=== PATIENT | female | born 1960 | race Caucasian/White ===

== ENCOUNTER 2019-02-24 23:49 | Inpatient (IN) | payer BC ==
[~2019-02-24] VITALS: Ht 177.8 cm; Wt 88.0 kg
[~2019-02-24 23:49] MED LIST: GUAI1TBM19 PO; LIDO20SO PO; PHEN-716 PO
[2019-02-25 00:18] LABS: BASOPHILS # (AUTO) 0.1 X10'3 (0-0.2); BASOPHILS % (AUTO) 0.9 % (0-1); EOSINOPHILS # (AUTO) 0.2 X10'3 (0-0.9); EOSINOPHILS % (AUTO) 3.2 % (0-6); HEMATOCRIT 34.1 % (35.0-45.0); HEMOGLOBIN 11.5 g/dl (12.0-16.0); LYMPHOCYTES # (AUTO) 2.4 X10'3 (1.1-4.8); LYMPHOCYTES % (AUTO) 38.9 % (21-51); MEAN CORPUSCULAR HEMOGLOBIN 32.7 PG (27.0-31.0); MEAN CORPUSCULAR HGB CONC 33.7 g/dL (33.0-36.5); MEAN PLATELET VOLUME 8.6 FL (7.4-10.4); MONOCYTES # (AUTO) 0.7 X10'3 (0-0.9); MONOCYTES % (AUTO) 10.5 % (2-12); NEUTROPHILS # (AUTO) 2.9 X10'3 (1.8-7.7); NEUTROPHILS % (AUTO) 46.5 % (42-75); PLATELET COUNT 151 X10'3 (140-440); RED BLOOD COUNT 3.52 X10'6 (4.20-5.60); RED CELL DISTRIBUTION WIDTH 13.4 % (11.5-14.5); WHITE BLOOD COUNT 6.3 X10'3 (4.5-11.0)
[2019-02-25 00:43] LABS: ALANINE AMINOTRANSFERASE 30 U/L (12-78); ALBUMIN 3.9 G/DL (3.4-5.0); ALBUMIN/GLOBULIN RATIO 1.2 (1.1-1.5); ALKALINE PHOSPHATASE 61 IU/L (46-116); ANION GAP 13 (8-16); ASPARTATE AMINO TRANSFERASE 17 U/L (10-37); BILIRUBIN,TOTAL 0.2 MG/DL (0.1-1.0); BLOOD UREA NITROGEN 31 MG/DL (7-18); BUN/CREATININE RATIO 16.1 (6.6-38.0); CALCIUM 8.6 MG/DL (8.5-10.1); CHLORIDE 110 MMOL/L (99-107); CREATININE 1.92 MG/DL (0.40-0.90); GLUCOSE 105 MG/DL (70-104); POTASSIUM 4.8 MMOL/L (3.5-5.1); SODIUM 144 MMOL/L (135-145); TOTAL CARBON DIOXIDE 21.2 MMOL/L (24-32); TOTAL PROTEIN 7.1 G/DL (6.4-8.2); eGFR 27 ML/MIN
[2019-02-25 00:59] LABS: CLARITY,URINE CLEAR (Clear); COLOR,URINE YELLOW (Yellow); GLUCOSE, URINE NEGATIVE (Neg); KETONES,URINE NEGATIVE (Neg); LEUKOCYTE ESTERASE ,URINE NEGATIVE (Neg); NITRITES, URINE NEGATIVE (Neg); OCCULT BLOOD,URINE SMALL (Neg); PH,URINE 5.5 (4.8-8.0); PROTEIN,URINE NEGATIVE (Neg); UROBILINOGEN,URINE 0.2 E.U/dL (0.2-1.0)
[2019-02-25 01:00] LABS: UA COLLECTION TYPE CLN CATCH MIDSTREAM
[2019-02-25] MEDS ORDERED: normal saline 1000ML IV soln IVB ONE (01:00)
[2019-02-25] MEDS ORDERED: pantoprazole 40 MG vial IV ONE (01:00)
[2019-02-25] MEDS ORDERED: ondansetron/PF 4mg/2ml inj IV ONE (01:00)
[2019-02-25] MEDS ORDERED: LORazepam 2 mg/ml vial IV ONE (01:00)
[2019-02-25] MEDS ORDERED: morphine 4 MG/ML inj SYRINge IV ONE (01:00)
[2019-02-25 01:05] LABS: WBC,URINE 0-4 /HPF (0-4)
[2019-02-25 01:06] LABS: BACTERIA,URINE NONE SEEN /HPF (Neg); SQUAMOUS EPITHELIAL CELL,UR FEW /LPF (FEW); TRANSITIONAL EPI CELLS,URINE FEW /HPF
[2019-02-25 01:07] LABS: CELLULAR CAST 0-4 /LPF (NEGATIVE); FINE GRANULAR CAST 0-3 /LPF (NEGATIVE); HYALINE CASTS 0-3 /LPF (NEGATIVE)
--- NOTE | 2019-02-25 01:14 | NUR ---
PT GOING TO CT
--- NOTE | 2019-02-25 01:14 | NUR ---
PTS PAIN IS DISTRACTABLE
[2019-02-25] MEDS: morphine 2 MG/ML inj. syringe IV PRN ×2 (02:30→05:38)
[2019-02-25] MEDS ORDERED: IBUP-1984 PO (02:34)
[2019-02-25] MEDS ORDERED: LACT1CAP65 PO (02:36)
[2019-02-25] MEDS ORDERED: HYDR-3964 PO (02:36)
[2019-02-25] MEDS ORDERED: NITR100C PO (02:36)
[2019-02-25] MEDS ORDERED: CefTRIAXone/D5W-Rocephin 1gm 50 ML IV ONE (02:50)
[2019-02-25] MEDS ORDERED: magnesium hydroxide 30ml (MOM) UD suspension PO PRN (03:00)
[2019-02-25] MEDS ORDERED: morphine 2 MG/ML inj. syringe IV PRN ×2 (03:00)
[2019-02-25] MEDS ORDERED: potassium Cl 20 mEq SR tablet PO PRN ×2 (03:00)
[2019-02-25] MEDS ORDERED: ondansetron/PF 4mg/2ml inj IV PRN (03:00)
[2019-02-25] MEDS ORDERED: magnesium 2GM in 50ml NS 50 ML IV PRN (03:00)
[2019-02-25] MEDS ORDERED: potassium CL 10mEq/100ml bag 100 ML IV PRN ×2 (03:00)
[2019-02-25] MEDS ORDERED: acetaminophen 325mg tablet PO PRN (03:00)
[2019-02-25] MEDS ORDERED: magnesium 4gm in 100ml NS 100 ML IV PRN (03:00)
[2019-02-25] MEDS ORDERED: mag hydrox/Alum hydrox/simeth 30ml oral suspension PO PRN (03:00)
[2019-02-25] MEDS ORDERED: magnesium Cl slow-release 64mg tablet PO PRN (03:00)
[2019-02-25] MEDS: HYDROcodone/acetaminophen 5mg/325mg tablet PO PRN ×3 (05:37→19:03)
--- NOTE | 2019-02-25 05:40 | NUR ---
DR IRVING STATES PT CAN HAVE SIPS OF WATER
[2019-02-25] MEDS ORDERED: oxybutynin 5mg tablet PO SCH (06:10)
--- NOTE | 2019-02-25 06:30 | NUR ---
Patient in room [facility]. I have received report from Rosalba MORALES at ED and had the opportunity to ask questions and assume patient care.
[2019-02-25 08:00] VITALS: BP 176/81
[2019-02-25] MEDS: K and/or MAG REPLACEMENT MC SCH ×2 (08:00→20:00)
[2019-02-25] MEDS: enoxaparin 40mg/0.4ml syringe SQ SCH (08:00)
[2019-02-25 11:29] VITALS: BP 167/72
[2019-02-25] MEDS: oxybutynin 5mg tablet PO SCH ×2 (12:29→20:44)
[2019-02-25] MEDS: normal saline 1000ml 1,000 ML IV SCH ×2 (12:40→22:40)
[2019-02-25 14:39] LABS: ALBUMIN 3.1 G/DL (3.4-5.0); ANION GAP 9 (8-16); BLOOD UREA NITROGEN 23 MG/DL (7-18); BUN/CREATININE RATIO 15.9 (6.6-38.0); CALCIUM 8.2 MG/DL (8.5-10.1); CHLORIDE 114 MMOL/L (99-107); CREATININE 1.45 MG/DL (0.40-0.90); GLUCOSE 79 MG/DL (70-104); POTASSIUM 4.8 MMOL/L (3.5-5.1); SODIUM 146 MMOL/L (135-145); eGFR 37 ML/MIN
--- NOTE | 2019-02-25 18:00 | NUR ---
Patient in room [facility]. I have received report from Comfort MORALES and had the opportunity to ask questions and assume patient care.
[2019-02-25] MEDS: phenazopyridine 100mg tablet PO SCH (19:02)
--- NOTE | 2019-02-25 19:51 | NUR ---
Problems reprioritized. Patient report given, questions answered & plan of care reviewed with Maria Fernanda Mejia RN.
[2019-02-25 20:00] VITALS: BP 177/68
[2019-02-26] VITALS: BP 145/83
[2019-02-26] MEDS: normal saline 1000ml 1,000 ML IV SCH (01:38)
[2019-02-26] MEDS: HYDROcodone/acetaminophen 5mg/325mg tablet PO PRN (03:22)
[2019-02-26 05:32] LABS: BASOPHILS % (AUTO) 0.7 % (0-1); EOSINOPHILS # (AUTO) 0.2 X10'3 (0-0.9); EOSINOPHILS % (AUTO) 3.2 % (0-6); HEMATOCRIT 30.1 % (35.0-45.0); HEMOGLOBIN 10.3 g/dl (12.0-16.0); LYMPHOCYTES # (AUTO) 2.2 X10'3 (1.1-4.8); MEAN CORPUSCULAR HEMOGLOBIN 32.7 PG (27.0-31.0); MEAN CORPUSCULAR HGB CONC 34.1 g/dL (33.0-36.5); MEAN CORPUSCULAR VOLUME 95.8 FL (78-98); MEAN PLATELET VOLUME 8.9 FL (7.4-10.4); MONOCYTES # (AUTO) 0.5 X10'3 (0-0.9); MONOCYTES % (AUTO) 9.4 % (2-12); NEUTROPHILS # (AUTO) 2.1 X10'3 (1.8-7.7); NEUTROPHILS % (AUTO) 41.7 % (42-75); PLATELET COUNT 132 X10'3 (140-440); RED BLOOD COUNT 3.14 X10'6 (4.20-5.60); RED CELL DISTRIBUTION WIDTH 13.3 % (11.5-14.5); WHITE BLOOD COUNT 4.9 X10'3 (4.5-11.0)
[2019-02-26 05:51] LABS: ALBUMIN 2.9 G/DL (3.4-5.0); ANION GAP 6 (8-16); BLOOD UREA NITROGEN 16 MG/DL (7-18); BUN/CREATININE RATIO 16.3 (6.6-38.0); CALCIUM 8.4 MG/DL (8.5-10.1); CHLORIDE 112 MMOL/L (99-107); CREATININE 0.98 MG/DL (0.40-0.90); GLUCOSE 92 MG/DL (70-104); MAGNESIUM 1.8 MG/DL (1.5-2.4); POTASSIUM 4.9 MMOL/L (3.5-5.1); SODIUM 145 MMOL/L (135-145); eGFR 58 ML/MIN
--- NOTE | 2019-02-26 06:00 | NUR ---
Problems reprioritized. Patient report given, questions answered & plan of care reviewed with Shirley MORALES.
--- NOTE | 2019-02-26 06:40 | NUR ---
Patient in room [facility]. I have received report from Maria Fernanda Quiroz/Minoo MORALES and had the opportunity to ask questions and assume patient care.
[2019-02-26] MEDS ORDERED: CefTRIAXone 2gm/D5W 50ml 50 ML IV SCH (08:00)
[2019-02-26] MEDS: enoxaparin 40mg/0.4ml syringe SQ SCH (08:27)
[2019-02-26] MEDS: phenazopyridine 100mg tablet PO SCH (08:28)
[2019-02-26] MEDS: oxybutynin 5mg tablet PO SCH (08:28)
[2019-02-26] MEDS ORDERED: PHEN-786 PO (10:11)
[2019-02-26] MEDS ORDERED: CEFD300C3 PO (11:57)
--- NOTE | 2019-02-26 15:00 | NUR ---
Pt DC to home. Pt verbalizes understanding of all DC orders and directions. pt DC with Anyi and is to follow up with Dr Vieira within [address] Sorensen office was contacted and given all info about pt. Pt will be contacted to fill out paper work and be seen. Pt practiced and demonstrates proper way of changing leg cath as well as night bag. She was given all supplies. Pt was given pain med at 0300 this am and has not have any narcotics since. Pt wants to go home and wnts to drive herself since her car is out inthe parking lot. Otherwise, she has to wait for a ride until 5. Policy was verify and she is ok to go home. Pain meds are PRN ONLY. pt packed and bagged all belongings and was wheeled out to the front where she was going to drive herself. Pt is A & O, acting proper and in no distress.
== END 2019-02-26 15:10 | disposition home or self-care (01) | DRG 690 ==
LOC: ER 23:50 → ED HOLD 02-25 03:13 → SUR 3N 02-25 06:52
PROVIDERS: ADMIT Hospitalist; ATTEND Family Medicine
DX: N13.6 Pyonephrosis (principal); C52 Malignant neoplasm of vagina; N17.9 Acute kidney failure, unspecified; F17.200 Nicotine dependence, unspecified, uncomplicated; N39.44 Nocturnal enuresis; Z85.3 Personal history of malignant neoplasm of breast; Z85.42 Personal history of malignant neoplasm of other parts of uterus; Z90.12 Acquired absence of left breast and nipple; Z90.710 Acquired absence of both cervix and uterus; Z92.21 Personal history of antineoplastic chemotherapy; Z92.3 Personal history of irradiation; Z79.899 Other long term (current) drug therapy
CPT/HCPCS: 36415; 74176; 76937; 80048; 80053; 81001; 83735; 85025; 87081; 96374; 96375; 99285; C9113; G0378; J0696; J1650; J2060; J2270; J2405; J7030

== ENCOUNTER 2020-11-02 08:53 | Emergency (ER) | payer BC ==
[~2020-11-02] VITALS: Ht 177.8 cm; Wt 83.2 kg
[~2020-11-02 08:53] MED LIST changes: -GUAI1TBM19 PO; +HYDR-3964 PO; +LACT1CAP65 PO; -LIDO20SO PO; -PHEN-716 PO; +PHEN-786 PO
[2020-11-02] MEDS ORDERED: ketorolac trometh inj. 60 MG/2 ML VIAL IM ONE (09:10)
[2020-11-02 09:14] VITALS: BP 144/87
[2020-11-02] MEDS ORDERED: CYCL-1 PO (09:40)
== END 2020-11-02 10:01 | disposition home or self-care (01) ==
LOC: ER 08:54
DX: S39.012A Strain of muscle, fascia and tendon of lower back, initial encounter (principal); R20.0 Anesthesia of skin; M62.830 Muscle spasm of back; N31.9 Neuromuscular dysfunction of bladder, unspecified; R53.1 Weakness; Z87.440 Personal history of urinary (tract) infections; Z85.3 Personal history of malignant neoplasm of breast; Z90.710 Acquired absence of both cervix and uterus; Z79.899 Other long term (current) drug therapy; X58.XXXA Exposure to other specified factors, initial encounter; Y93.89 Activity, other specified; Y92.89 Other specified places as the place of occurrence of the external cause; Y99.8 Other external cause status
CPT/HCPCS: 96372; 99283; J1885

== ENCOUNTER 2020-11-24 09:30 | Emergency (ER) | payer BC ==
[~2020-11-24] VITALS: Ht 177.8 cm; Wt 84.0 kg
[~2020-11-24 09:30] MED LIST changes: +CYCL-1 PO
[2020-11-24] MEDS ORDERED: morphine 4 MG/ML inj SYRINge IV ONE (09:45)
[2020-11-24] MEDS ORDERED: normal saline 1000ml 1,000 ML IV ONE (09:45)
[2020-11-24] MEDS ORDERED: ondansetron/PF 4mg/2ml inj IV ONE (09:45)
[2020-11-24 10:37] LABS: BASOPHILS % (AUTO) 0.3 % (0-1); EOSINOPHILS # (AUTO) 0.1 X10'3 (0-0.9); EOSINOPHILS % (AUTO) 1.3 % (0-6); HEMATOCRIT 35.6 % (35.0-45.0); HEMOGLOBIN 12.1 g/dl (12.0-16.0); LYMPHOCYTES # (AUTO) 2.1 X10'3 (1.1-4.8); LYMPHOCYTES % (AUTO) 33.8 % (21-51); MEAN CORPUSCULAR HEMOGLOBIN 33.8 PG (27.0-31.0); MEAN CORPUSCULAR HGB CONC 33.9 g/dL (33.0-36.5); MEAN CORPUSCULAR VOLUME 99.9 FL (78-98); MEAN PLATELET VOLUME 8.1 FL (7.4-10.4); MONOCYTES # (AUTO) 0.5 X10'3 (0-0.9); NEUTROPHILS # (AUTO) 3.4 X10'3 (1.8-7.7); NEUTROPHILS % (AUTO) 56.6 % (42-75); PLATELET COUNT 174 X10'3 (140-440); RED BLOOD COUNT 3.57 X10'6 (4.20-5.60); RED CELL DISTRIBUTION WIDTH 13.8 % (11.5-14.5); WHITE BLOOD COUNT 6.1 X10'3 (4.5-11.0)
[2020-11-24 10:48] LABS: ALANINE AMINOTRANSFERASE 26 U/L (12-78); ALBUMIN 3.4 G/DL (3.4-5.0); ALKALINE PHOSPHATASE 50 IU/L (46-116); ANION GAP 11 (8-16); ASPARTATE AMINO TRANSFERASE 14 U/L (10-37); BILIRUBIN,DIRECT 0.1 MG/DL (0-0.3); BILIRUBIN,TOTAL 0.3 MG/DL (0.1-1.0); BLOOD UREA NITROGEN 17 MG/DL (7-18); BUN/CREATININE RATIO 21.3 (6.6-38.0); CALCIUM 8.7 MG/DL (8.5-10.1); CHLORIDE 107 MMOL/L (99-107); GLUCOSE 87 MG/DL (70-104); LIPASE < 50 U/L (73-393); POTASSIUM 3.8 MMOL/L (3.5-5.1); SODIUM 145 MMOL/L (135-145); TOTAL CARBON DIOXIDE 27.2 MMOL/L (24-32); TOTAL PROTEIN 6.7 G/DL (6.4-8.2); eGFR 74 ML/MIN
[2020-11-24 10:55] LABS: CLARITY,URINE CLEAR (Clear); COLOR,URINE YELLOW (Yellow); PH,URINE 7.5 (4.8-8.0); UA COLLECTION TYPE STRAIGHT CATH
[2020-11-24 10:56] LABS: GLUCOSE, URINE NEGATIVE (Neg); KETONES,URINE TRACE mg/dl (Neg); LEUKOCYTE ESTERASE ,URINE NEGATIVE (Neg); NITRITES, URINE NEGATIVE (Neg); OCCULT BLOOD,URINE NEGATIVE (Neg); PROTEIN,URINE NEGATIVE (Neg); UROBILINOGEN,URINE 0.2 E.U/dL (0.2-1.0)
[2020-11-24 12:10] VITALS: BP 140/78
== END 2020-11-24 12:31 | disposition home or self-care (01) ==
LOC: ER 09:30
DX: M54.89 Other dorsalgia (principal); R11.0 Nausea; Z87.440 Personal history of urinary (tract) infections; Z85.3 Personal history of malignant neoplasm of breast; Z90.710 Acquired absence of both cervix and uterus; Z79.899 Other long term (current) drug therapy
CPT/HCPCS: 36415; 74176; 80048; 80076; 81003; 83690; 85025; 96361; 96374; 96375; 99284; J2270; J2405; J7030

== ENCOUNTER 2024-07-20 16:28 | Emergency (ER) | payer BC, OTHER ==
[~2024-07-20] VITALS: Ht 172.7 cm; Wt 89.4 kg
--- NOTE | 2024-07-20 16:58 | Physician Documentation ---
History of Present Illness ~ Chief Complaint: Mechanical Fall Stated Complaint: LT THUMB PAIN/FACE PAIN Time Seen by MD: 19:56 Primary Medical Doctor: [facility] MANN HPI This 64-year-old female presents after a ground level trip and fall striking her left face, left hand in left knee causing pain to these areas. Patient reports no blood thinners and no loss of consciousness. Patient additionally reports pain to posterior neck, though reports no new new numbness or weakness in extremities. Tetanus within 5 Years?: No Medication Reconciliation Allergies: Coded Allergies: No Known Allergies (Unverified , 07/20/24) Scheduled Cyclobenzaprine* (Cyclobenzaprine*), 1 TAB PO Q8H Hydrocodone Bit/Acetaminophen (Hydrocodon-Acetaminophen 5-325), 1 TAB PO TID PRN, (Reported) Ibuprofen (Ibuprofen), 1 TAB PO Q8H Lactobacillus Acidophilus (Probiotic), 1 EACH PO DAILY, (Reported) Phenazopyridine Hcl (Pyridium tablet), 200 MG PO TIDWM Past Medical History Past Medical History: UTI, Extremity Fracture, *CANCER*, Breast Cancer Past Surgical History: hysterectomy Alcohol Use: Rarely Drug Use: none Lives with: S/O Lives In: Home Occupation: employed Review of Systems ROS Left face pain, left hand pain, and left knee pain as stated above in the HPI, otherwise all systems are reviewed and negative. Physical Exam Vital Signs: Temperature: 97.9, Source: Temporal, Heart Rate: 89, Respiratory Rate: 16, BP: 151/89, Pulse Oximetry: 98, Weight: 89.400 Oxygen Flow Rate: 0 Physical Exam VITALS: Reviewed and as above. GENERAL: Alert, nontoxic appearing, no apparent distress. HEENT: Mild swelling minimal ecchymosis to left cheek. Tenderness to posterior neck without central C-spine tenderness, no step-offs, no crepitus. PERRLA EOMI RESPIRATORY: No increased work of breathing, no respiratory distress, speaking in full clear sentences SKIN: Abrasion to the skin of left knee, no ecchymosis, EXTREMITIES: No gross deformities, no swelling, mild tenderness to palpation to the anterior right knee, range of motion intact in all limbs. Palmar aspect of base of left hand tender to palpation Progress Results/Orders Results/Orders Orders - KAMALJIT,WHITNEY W [employer]ANETARI[employer] TECHNICIAN Ct Cervical Spine (07/20/24 20:29) Ct Head (07/20/24 20:27) Ct Facial Bones/Soft Tissue (07/20/24 20:27) Ortho Orders (07/20/24 ) Completed Orders - WHITNEY MARI PLANETARIUM TECHNICIAN Ct Cervical Spine (07/20/24 20:29) Ct Head (07/20/24 20:27) Ct Facial Bones/Soft Tissue (07/20/24 20:27) Ketorolac Trometh 15mg/Ml Vial (Toradol (07/20/24 20:20) Acetaminophen 325mg Tablet (Tylenol Tabl (07/20/24 22:30) Vital Signs 07/20/24 07/20/24 07/20/24 07/20/24 16:30 19:37 19:39 21:09 Temp 97.9 Pulse 89 55 54 Resp 16 16 16 16 B/P (MAP) 151/89 172/92 (118) 162/80 (107) Pulse Ox 98 99 100 O2 Flow Rate 0 0 0 07/20/24 07/20/24 22:55 22:55 Temp 97.9 Pulse 65 Resp 16 16 B/P (MAP) 154/72 Pulse Ox 100 EKG/XRAY/CT/US/VASC/MRI Bone/Soft Tissue X-Ray (Ext.) #1: Additional Comment Procedure: DI FINGER(S) 07/20/2024 04:54 PM TECHNIQUE: DI FINGER(S) Indication: Finger Pain Comparison: None FINDINGS: Bones: No acute fracture or dislocation. Joint spaces are maintained. Soft tissues: Soft tissue swelling is present. No radiopaque foreign body. IMPRESSION: 1. No acute osseous abnormality. There is soft tissue swelling present. Electronically Signed by:KALANI LERMA MD Date & Time: 07/20/241732 Dictated by: KALANI LERMA MD Dictation date and time: 07/20/241732 I have reviewed and agree with the radiology report. I have reviewed and interpreted the imaging as: No fracture or dislocation Bone/Soft Tissue X-Ray (Ext.) #2: Additional Comment CLINICAL INDICATION: KNEE PAIN TECHNIQUE: left DI KNEE, COMP 4 VW MIN Comparison: None FINDINGS/IMPRESSION: : There is no evidence of acute fracture or dislocation. Soft tissues are unremarkable. Electronically Signed by:KALANI GR MD Date & Time: 07/20/241739 Dictated by: KALANI GR MD Dictation date and time: 07/20/241739 I have reviewed and agree with the radiology report. I have reviewed and interpreted the imaging as: No fracture or dislocation CT #1: Impression EXAM: CT CT CERVICAL SPINE INDICATION: Neck and Head Pain After Fall W/Headstrike EXAM DATE: 07/20/2024 08:26 PM COMPARISON: None TECHNIQUE: CT of the cervical spine without intravenous contrast. Radiation Dose Information: CT Dose: CTDI volume is 23 mGy. Dose-length product is 5025 mGy*cm FINDINGS: The cervical alignment is intact. No acute cervical spine fracture is identified. The vertebral body heights are intact. No suspicious osseous lesions are identified. The craniocervical junction appears intact. Moderate multilevel degenerative changes no significant osseous spinal canal stenosis. Mild bilateral osseous neural foraminal narrowing. There is no prevertebral soft tissue swelling. IMPRESSION: No evidence of acute cervical spine fracture or malalignment. END IMPRESSION: Electronically Signed by:KEVIN RODRIGUEZ DO Date & Time: 07/20/242205 Dictated by: KEVIN RODRIGUEZ DO Dictation date and time: 07/20/242028 CT #2: Impression EXAM: CT CT HEAD INDICATION: Neck and Head Pain After Fall W/Headstrike TECHNIQUE: CT of the head without intravenous contrast. Radiation Dose : 1. Head: CT Dose: CTDI volume is 64 mGy. Dose-length product is 1167 mGy*cm The dose indicators for CT are the volume Computed Tomography (CT) Dose Index (CTDIvol) and the Dose Length Product (DLP), and are measured in units of mGy and mGy-cm, respectively. These indicators are not patient dose, but values generated from the CT scanner acquisition factors. The report includes radiation exposure data for exposures received during this examination. COMPARISON: None FINDINGS: There is no evidence of acute intracranial hemorrhage, extra-axial collection, mass effect, midline shift, herniation or hydrocephalus. The ventricles, sulci and cisterns are age appropriate. The figueroa-white differentiation is intact. Patchy periventricular and subcortical white matter hypoattenuation is nonspecific but may be related to small vessel ischemic disease. The visualized paranasal sinuses and mastoid air cells are clear. Soft tissue injury to the left face. IMPRESSION: No acute intracranial abnormality. Electronically Signed by:KEVIN RODRIGUEZ DO Date & Time: 07/20/242201 Dictated by: KEVIN RODRIGUEZ DO Dictation date and time: 07/20/242201 Ultrasound : Impression HISTORY: Face Pain After Fall TECHNIQUE: Nonenhanced axial images through the facial bones with coronal and sagittal MPR. Radiation Dose Information: CT Dose: CTDI volume is 55 mGy. Dose-length product is 1079 mGy*cm COMPARISON: None FINDINGS: Mandible: Within normal limits Maxilla: Within normal limits Pterygoid plates: Within normal limits Zygomatic processes: Within normal limits. Zygomatic arches: Within normal limits Orbits: Within normal limits Sinuses: Within normal limits Facial swelling: Soft tissue injury/ edema involving the left face. IMPRESSION: 1. No acute facial fractures. Radiation optimization: All CT scans at this facility use at least one of these dose optimization techniques: automated exposure control mA and/or kV adjustment per patient size (includes targeted exams where dose is matched to clinical indication) or iterative reconstruction. Electronically Signed by:KEVIN RODRIGUEZ DO Date & Time: 07/20/242207 Dictated by: KEVIN RODRIGUEZ DO Dictation date and time: 07/20/242026 Departure Disposition: 01 HOME / SELF CARE / HOMELESS Impression: Primary Impression: Contusion of left cheek Additional Impressions: Left hand pain Knee pain Qualified Codes: M25.562 - Pain in left knee Concussion Qualified Codes: S06.0X0A - Concussion without loss of consciousness, initial encounter Condition: Improved Discharge Instructions: Concussion, Adult, [id number], Contusion, RICE Therapy for Routine Care of Injuries, [id number] Additional Instructions: Please see the attached home care instructions, you may also reference the CDC concussion care guidelines on the Internet. You may use ibuprofen and or Tylenol as directed by [id number] packaging as needed for pain. Please follow up with your primary care provider in the next few days. Please return to the emergency department for any new or worsening concerning symptoms. Referrals: NO PRIMARY CARE PROVIDER (PCP) Prescriptions Ibuprofen (Ibuprofen) 800 Mg Tablet 1 TAB PO Q8H for pain for 10 Days, #30 TAB 0 Refills Take with food to avoid stomach upset Prov: WHITNEY MARI 07/20/24 Education Educated: Patient Educated regarding: diagnosis, treatment, prognosis, need for follow up WHITNEY MARI Jul 20, 2024 16:58
--- NOTE | 2024-07-20 17:36 | RADIOLOGY REPORT ---
Procedure: DI FINGER(S) 07/20/2024 04:54 PM TECHNIQUE: DI FINGER(S) Indication: Finger Pain Comparison: None FINDINGS: Bones: No acute fracture or dislocation. Joint spaces are maintained. Soft tissues: Soft tissue swelling is present. No radiopaque foreign body. IMPRESSION: 1. No acute osseous abnormality. There is soft tissue swelling present.
--- NOTE | 2024-07-20 17:42 | RADIOLOGY REPORT ---
CLINICAL INDICATION: KNEE PAIN TECHNIQUE: left DI KNEE, COMP 4 VW MIN Comparison: None FINDINGS/IMPRESSION: : There is no evidence of acute fracture or dislocation. Soft tissues are unremarkable.
[2024-07-20] MEDS: ketorolac trometh 15mg/ml vial 15 MG/ML ML IM ONE (20:57)
--- NOTE | 2024-07-20 22:04 | RADIOLOGY REPORT ---
EXAM: CT CT HEAD INDICATION: Neck and Head Pain After Fall W/Headstrike TECHNIQUE: CT of the head without intravenous contrast. Radiation Dose : 1. Head: CT Dose: CTDI volume is 64 mGy. Dose-length product is 1167 mGy*cm The dose indicators for CT are the volume Computed Tomography (CT) Dose Index (CTDIvol) and the Dose Length Product (DLP), and are measured in units of mGy and mGy-cm, respectively. These indicators are not patient dose, but values generated from the CT scanner acquisition factors. The report includes radiation exposure data for exposures received during this examination. COMPARISON: None FINDINGS: There is no evidence of acute intracranial hemorrhage, extra-axial collection, mass effect, midline s hift, herniation or hydrocephalus. The ventricles, sulci and cisterns are age appropriate. The figueroa-white differentiation is intact. Patchy periventricular and subcortical white matter hypoattenuation is nonspecific but may be related to small vessel ischemic disease. The visualized paranasal sinuses and mastoid air cells are clear. Soft tissue injury to the left face. IMPRESSION: No acute intracranial abnormality.
--- NOTE | 2024-07-20 22:08 | RADIOLOGY REPORT ---
EXAM: CT CT CERVICAL SPINE INDICATION: Neck and Head Pain After Fall W/Headstrike EXAM DATE: 07/20/2024 08:26 PM COMPARISON: None TECHNIQUE: CT of the cervical spine without intravenous contrast. Radiation Dose Information: CT Dose: CTDI volume is 23 mGy. Dose-length product is 5025 mGy*cm FINDINGS: The cervical alignment is intact. No acute cervical spine fracture is identified. The vertebral bod y heights are intact. No suspicious osseous lesions are identified. The craniocervical junction erick ears intact. Moderate multilevel degenerative changes no significant osseous spinal canal stenosis. Mild bilateral osseous neural foraminal narrowing. There is no prevertebral soft tissue swelling. IMPRESSION: No evidence of acute cervical spine fracture or malalignment. END IMPRESSION:
--- NOTE | 2024-07-20 22:11 | RADIOLOGY REPORT ---
HISTORY: Face Pain After Fall TECHNIQUE: Nonenhanced axial images through the facial bones with coronal and sagittal MPR. Radiation Dose Information: CT Dose: CTDI volume is 55 mGy. Dose-length product is 1079 mGy*cm COMPARISON: None FINDINGS: Mandible: Within normal limits Maxilla: Within normal limits Pterygoid plates: Within normal limits Zygomatic processes: Within normal limits. Zygomatic arches: Within normal limits Orbits: Within normal limits Sinuses: Within normal limits Facial swelling: Soft tissue injury/ edema involving the left face. IMPRESSION: 1. No acute facial fractures. Radiation optimization: All CT scans at this facility use at least one of these dose optimization yung hniques: automated exposure control mA and/or kV adjustment per patient size (includes targeted exam s where dose is matched to clinical indication) or iterative reconstruction.
[2024-07-20] MEDS ORDERED: IBUP-1986 PO (22:43)
[2024-07-20] MEDS: acetaminophen 325mg tablet PO ONE (22:51)
[2024-07-20 22:55] VITALS: BP 154/72; PULSE 65; RESP 16; TEMP 97.9; O2SAT 100
== END 2024-07-20 22:58 | disposition home or self-care (01) ==
LOC: ER 16:29
DX: S00.83XA Contusion of other part of head, initial encounter (principal); S06.0X0A Concussion without loss of consciousness, initial encounter; M25.562 Pain in left knee; M79.642 Pain in left hand; Z90.710 Acquired absence of both cervix and uterus; W01.0XXA Fall on same level from slipping, tripping and stumbling without subsequent striking against object, initial encounter; Y93.89 Activity, other specified; Y92.89 Other specified places as the place of occurrence of the external cause; Y99.8 Other external cause status
CPT/HCPCS: 70450; 70486; 72125; 73140; 73564; 96372; 99285; J1885

== ENCOUNTER 2024-07-26 13:37 | Emergency (ER) | payer OTHER, MEDICAID ==
[~2024-07-26] VITALS: Ht 172.7 cm; Wt 88.2 kg
[~2024-07-26 13:37] MED LIST changes: +IBUP-1986 PO
--- NOTE | 2024-07-26 14:09 | RADIOLOGY REPORT ---
[facility] EXAMINATION: DI UNI RIBS WITH PA CHEST INDICATION: left rib pain COMPARISON: None TECHNIQUE: Frontal view of the chest and 3 views of the left ribs history FINDINGS: No focal consolidation, pleural effusion or significant pneumothorax. Normal cardiomediastinal silhou ette. No displaced left rib fracture. IMPRESSION: No acute cardiopulmonary disease. No displaced left rib fracture.
--- NOTE | 2024-07-26 15:02 | Physician Documentation ---
History of Present Illness ~ Chief Complaint: Rib pain Stated Complaint: BREAST PAIN Time Seen by MD: 14:53 OK to notify your PCP?: Yes Primary Medical Doctor: [facility] [place]DR MANN Source: patient Mode of Arrival: POV Exam Limitations: no limitations HPI 64-year-old female who presents with left chest wall pain after falling 6 days ago. After the fall she had some your left-sided rib/chest wall soreness that started 1 day later and now is progressing into severe pain and she is having difficulty sleeping with it. She was seen here 6 days ago and had a had negative head imaging but did not receive any chest/rib x-ray. She has increased pain with deep breath or movement and is having to hold up her breast implant due to the pain. She had breast implants placed [place] [address] Cornell who has since retired. She believes they are saline and under the muscle but they also maybe silicone she can not remember exactly. She reports that the implant appears lower than the other side. Tetanus within 5 Years?: No Allergies: Coded Allergies: No Known Allergies (Unverified , 07/26/24) Active Prescriptions See Medication Reconciliation Form. Medication Reconciliation Scheduled Cyclobenzaprine* (Cyclobenzaprine*), 1 TAB PO Q8H Hydrocodone Bit/Acetaminophen (Hydrocodon-Acetaminophen 5-325), 1 TAB PO TID PRN, (Reported) Ibuprofen (Ibuprofen), 1 TAB PO Q8H Lactobacillus Acidophilus (Probiotic), 1 EACH PO DAILY, (Reported) Phenazopyridine Hcl (Pyridium tablet), 200 MG PO TIDWM Past Medical History Past Medical History: UTI, Extremity Fracture, *CANCER*, Breast Cancer Past Surgical History: hysterectomy Alcohol Use: Rarely Drug Use: none Lives with: S/O Lives In: Home Occupation: employed Review of Systems All Other Systems at this time: Reviewed and Negative Physical Exam Vital Signs: RN Vital Signs have been reviewed: Yes, Temperature: 97.8, Source: Temporal, Heart Rate: 89, Respiratory Rate: 18, BP: 155/90, Pulse Oximetry: 99, Weight: 88.180 Oxygen Flow Rate: 0 Pulse Oximetry Reflects: adequate oxygenation Physical Exam General: Alert, no apparent distress. HEENT: PERRL, EOMI, no injection, moist mucous membranes. Neck: Full range of motion. Respiratory: Lungs clear, no respiratory distress. Chest: No accessory muscle use. Pain to palpation along left chest wall and around breast implant. On exam breast implant on the left appears lower than on the right. Cardiovascular: Regular rate and rhythm, no murmurs. Gastrointestinal: Soft, nontender, nondistended. Bowels sounds present. Extremities: Normal range of motion, no deformity. Neurologic: Oriented x4. Psychiatric: Normal mood and affect. Skin: Normal color, warm and dry. Ecchymosis around the left orbital and left forehead in the stages of healing. Progress Results/Orders Reviewed/noted all lab results: Yes Results/Orders Orders - TISHA RUTH [employer] Us Exam, Breast Unilat (07/26/24 14:53) Completed Orders - TISHA RUTH [employer] Us Exam, Breast Unilat (07/26/24 14:53) Ketorolac Trometh 30mg/Ml Vial (Toradol (07/26/24 14:55) Orphenadrine Citrate Inj. (Norflex Inj.) (07/26/24 14:55) Medications Received in ER Medications (Trade) Dose Ordered Sig/Geovanna Route PRN Reason Start Time Stop Time Status Last Admin Dose Admin (Toradol inj. 30mg/ml) 30 mg ONCE ONCE IM 07/26/24 14:55 07/26/24 14:58 DC 07/26/24 15:29 30 MG (Norflex inj.) 60 mg ONCE ONCE IM 07/26/24 14:55 07/26/24 14:57 DC 07/26/24 15:28 60 MG Vital Signs 07/26/24 07/26/24 13:42 15:29 Temp 97.8 Pulse 89 Resp 18 16 B/P (MAP) 155/90 Pulse Ox 99 O2 Flow Rate 0 EKG/XRAY/CT/US/VASC/MRI Bone/Soft Tissue X-Ray (Ext.) : Additional Comment Left rib x-ray: as interpreted by me; no acute fracture, no soft tissue swelling. Ultrasound : Impression Left breast ultrasound as interpreted by me. No abscess, or fluid collection seen. Medical Decision Making Additional info obtained from: old records Findings 64-year-old female presents with a left chest wall and breast pain after fall 6 days ago. She initially did not have any pain to that side but the next day s tarted having some soreness around the implant which then proceeded to increase in pain throughout the week. She states that the only way that she can relief the pain is by lifting up on her left breast and that it also appears abnormally lower than the other side. Rib x-rays were negative for an acute fracture although the implant does appear lower than the other side but positioning is not optimal for comparison. I discussed this case with Dr. Sanchez and she recommended we get a breast ultrasound to assess for a rupture of the implant and to treat with muscle relaxer and Toradol which was ordered. Ultrasound was negative for excess fluid collection or abscess. After assessing the patient, she is feeling much better after the medication administration and she has been able to take a nap while here. We discussed that we have limited resources in the emergency department and she needs to follow up with her primary care provider in the next 3 days and get a referral to a breast surgeon. She is requesting some sort of support device to allow support for the breast so she does not have to hold it up, we will provide a wrap to help provide a little extra support on that side. I have sent a prescriptions for Flexeril and naproxen for pain relief. She will return back here for any new or worsening symptoms she agrees with this plan. Differential Dx:Considerations: Include: Chest wall contusion, Flail chest, Pneumothorax, Pulmonary contusion, Rib fracture, Tension pneumothorax Departure Disposition: 01 HOME / SELF CARE / HOMELESS Impression: Primary Impression: Pain from breast implant Condition: Stable Discharge Instructions: Breast Tenderness Additional Instructions: You can use the Amrik wrap provided to help as support for your left breast. Please see your primary care provider in the next 3 days to receive a referral to a breast surgeon. Your ultrasound did not show any abnormalities in the implant. We discussed the you can use naproxen and the muscle relaxer to help with pain relief. A heating pad may also be helpful with this. Please return back here for any new or worsening symptoms. Referrals: NO PRIMARY CARE PROVIDER (PCP) Prescriptions Cyclobenzaprine* (Cyclobenzaprine*) 10 Mg Tablet 1 TAB PO Q8H PRN for muscle spasms for 10 Days, #30 TAB 0 Refills Prov: TISHA RUTH [employer] 07/26/24 Naproxen (Naproxen) 500 Mg Tablet 1 TAB PO Q12H, #20 TAB Prov: TISHA RUTH 07/26/24 Education Educated: Patient Educated regarding: diagnosis, treatment, prognosis, need for follow up Additional Comment Medical Screen Exam This patient recieved a medical screening examination. After reviewing the individual's medical complaints with presenting symptoms and performing an appropriate physical examination, it was determined that no immediate life- threatening emergency medical condition is present. This individual is also not a women having contractions. Signature Scribe Signature: . Attestation: Scribed for Tisha Ruth by Tisha Chase NP . 07/26/24 16:30 TISHA RUTH Jul 26, 2024 15:02
[2024-07-26] MEDS: orphenadrine citrate 60mg/2ml inj. IM ONE (15:28)
[2024-07-26] MEDS: ketorolac trometh 30MG/ML vial 30 MG/ML VIAL IM ONE (15:29)
--- NOTE | 2024-07-26 15:57 | RADIOLOGY REPORT ---
US OF THE left BREAST INDICATION: Fall injury. Pain in the left breast. TECHNIQUE: Limited diagnostic ultrasound of the left breast were evaluated with ultrasound COMPARISON: None. FINDINGS: Corresponding to the area of clinical concern, no mass or fluid collection identified in the area of the patient's clinical symptoms near the 5-7 o'clock positions of the left breast. IMPRESSION: 1. There is no mass or fluid collection identified in the area of clinical concern in the left breast . Correlate with clinical findings. Examination is limited to the area of concern does not replace th e need for screening mammography. Annual screening mammography recommended. 2. ACR Bi Rads Category:Category 2, benign findings.
[2024-07-26] MEDS ORDERED: NAPR-56 PO (16:25)
[2024-07-26] MEDS ORDERED: CYCL-1 PO (16:25)
[2024-07-26 16:44] VITALS: BP 150/82; PULSE 64; RESP 16; TEMP 97.8; O2SAT 98
== END 2024-07-26 16:46 | disposition home or self-care (01) ==
LOC: ER 13:38
DX: N64.4 Mastodynia (principal); R07.89 Other chest pain; Z85.3 Personal history of malignant neoplasm of breast; Z90.710 Acquired absence of both cervix and uterus
CPT/HCPCS: 71101; 76642; 76881; 96372; 99285; J1885; J2360; A6449

== ENCOUNTER 2024-12-17 09:53 | Emergency (ER) | payer MEDICAID, OTHER ==
[~2024-12-17] VITALS: Ht 177.8 cm; Wt 89.5 kg
[2024-12-17 09:59] VITALS: TEMP 96.8
--- NOTE | 2024-12-17 10:13 | Physician Documentation ---
History of Present Illness ~ Chief Complaint: Back Pain Stated Complaint: BACK PAIN Time Seen by MD: 10:12 Primary Medical Doctor: ELADIO WH[facility] MANN HPI This is a 64-year-old female with a history of vaginal, uterine, and breast cancer. She presents today due to concerns for back pain and possible urinary tract infection. She self catheterizes due to urinary obstruction/retention. Hx of HLD, anxiety. Was concerned today because when she went to self-catheterize, she had a very large amount of blood. This is not typical with self catheterization for her. She notes that she is able to void at times, that has self catheterizes 3 times a day to ensure emptying of the bladder. History of neurogenic bladder. No recent chills or fever, but does note that she feels overall unwell. Medication Reconciliation Allergies: Coded Allergies: No Known Allergies (Unverified , 12/17/24) Scheduled Cyclobenzaprine* (Cyclobenzaprine*), 1 TAB PO Q8H Hydrocodone Bit/Acetaminophen (Hydrocodon-Acetaminophen 5-325), 1 TAB PO TID P RN, (Reported) Ibuprofen (Ibuprofen), 1 TAB PO Q8H Lactobacillus Acidophilus (Probiotic), 1 EACH PO DAILY, (Reported) Naproxen (Naproxen), 1 TAB PO DAILY Phenazopyridine Hcl (Pyridium tablet), 200 MG PO TIDWM Phenazopyridine Hcl (Pyridium tablet), 1 TAB PO Q8H Sulfamethoxazole/Trimethoprim (Bactrim Ds Tablet), 1 TAB PO Q12H Scheduled PRN Cyclobenzaprine* (Cyclobenzaprine*), 1 TAB PO Q8H PRN for muscle spasms Past Medical History Past Medical History: UTI, Extremity Fracture, *CANCER*, Breast Cancer Past Surgical History: hysterectomy Alcohol Use: Rarely Drug Use: none Lives with: S/O Lives In: Home Occupation: employed Review of Systems ROS As stated above in the HPI, otherwise all systems are reviewed and negative. Physical Exam Physical Exam Vital Signs: Temperature: 96.8, Source: Temporal, Heart Rate: 86, Respiratory Rate: 18, BP: 165/98, Pulse Oximetry: 97, Weight: 89.500 Oxygen Flow Rate: 0 Progress Results/Orders Results/Orders Orders - JAMAICA RAVI NP * Straight Cath* (12/17/24 10:16) Completed Orders - JAMAICA RAVI NP Hydrocodone/Apap 5/325mg Tab ([place] 5/32 (12/17/24 10:30) Ceftriaxone Im Kit W/Lidocaine (Rocephin (12/17/24 12:15) Phenazopyridine Tablet (Pyridium Tablet) (12/17/24 12:15) Medications Received in ER Medications (Trade) Dose Ordered Sig/Geovanna Route PRN Reason Start Time Stop Time Status Last Admin Dose Admin ([place] 5/325mg tablet) 1 tab ONCE ONCE PO 12/17/24 10:30 12/17/24 10:31 DC 12/17/24 10:45 1 TAB (Rocephin 1GM IM kit (w/lidocaine diluent)) 1,000 mg ONCE ONCE IM 12/17/24 12:15 12/17/24 12:16 DC 12/17/24 12:23 1,000 MG (Pyridium tablet) 100 mg ONCE ONCE PO 12/17/24 12:15 12/17/24 12:16 DC 12/17/24 12:22 100 MG Vital Signs 12/17/24 12/17/24 12/17/24 12/17/24 09:59 10:45 11:39 12:27 Temp 96.8 Pulse 86 71 52 52 Resp 18 20 18 20 B/P (MAP) 165/98 163/88 (113) 153/76 (101) 148/83 (104) Pulse Ox 97 99 96 100 O2 Flow Rate 0 0 0 0 Laboratory Tests Test 12/17/24 10:06 12/17/24 10:27 Urine Specimen Description Straight cath Urine Color Yellow Urine Clarity Slightly cloudy Urine pH 7.5 Urine Specific [place] 1.010 Urine Protein Negative Urine Glucose (UA) Negative Urine Ketones Negative Urine Occult Blood Moderate H Urine Nitrite Positive H Urine Bilirubin Negative Urine Urobilinogen 0.2 Urine Leukocyte Esterase Trace H Urine RBC 3-10 Urine WBC 10-20 H Urine Squamous Epithelial Cells Many Urine Bacteria 4+ Urine Culture Indicated Indicated Volume Urine Centrifuged 10 ml Urine HCG, Qualitative Negative Urine Comment White Blood Count 4.7 Red Blood Count 3.69 L Hemoglobin 12.5 Hematocrit 37.2 Mean Corpuscular Volume 100.7 H Mean Corpuscular Hemoglobin 33.9 H Mean Corpuscular Hemoglobin Concent 33.7 Red Cell Distribution Width 13.7 Platelet Count 161 Mean Platelet Volume 7.9 Neutrophils (%) (Auto) 49.9 Lymphocytes (%) (Auto) 40.6 Monocytes (%) (Auto) 7.5 Eosinophils (%) (Auto) 1.4 Basophils (%) (Auto) 0.6 Neutrophils # (Auto) 2.3 Lymphocytes # (Auto) 1.9 Monocytes # (Auto) 0.3 Eosinophils # (Auto) 0.1 Basophils # (Auto) 0.0 CBC Comment Sodium Level 141 Potassium Level 3.9 Chloride Level 108 H Carbon Dioxide Level 25.9 Anion Gap 7 L Blood Urea Nitrogen 17 Creatinine 0.70 Estimated GFR/1.73 m2 85 BUN/Creatinine Ratio 24.3 H Glucose Level 91 Calcium Level 8.6 Total Bilirubin 0.6 Aspartate Amino Transf (AST/SGOT) 22 Alanine Aminotransferase (ALT/SGPT) 21 Alkaline Phosphatase 50 Total Protein 7.1 Albumin 3.7 Globulin 3.4 Albumin/Globulin Ratio 1.1 Lipase 30 Chemistry Comments Microbiology Date/Time Source Procedure Growth Status 12/17/24 11:29 Urine Straight Cath Urine Culture - Preliminary Culture received. Resulted Medical Decision Making Additional information obtaine: old records Findings Reviewed previous records from this hospital and her previous hospitalization here. Patient also good historian. Differential Dx:Considerations: Pancreatitis, Pyelonephritis, Strain, Urinary obstruction, Urolithiasis, Renal infarction, Urinary tract infection Differential Diagnosis The patient with history of neurogenic bladder, self catheterizes 3 times a day. Has been noting blood in urine. Found to have urinary tract infection. We will treat with Bactrim x5 days. Discussed with patient that culture results will be back in 48-72 hours. These may alter the course of treatment, requiring antibiotic change depending on the results. She is to follow up with primary care provider. She is to return if worse at any time. Departure Time of Disposition: 12:15 Disposition: 01 HOME / SELF CARE / HOMELESS Impression: Primary Impression: Low back pain Additional Impression: Acute urinary tract infection Condition: Stable Discharge Instructions: Managing Chronic Back Pain, Urinary Tract Infection, Ad ult Additional Instructions: You appear to have a UTI. Labs are otherwise good including normal white blood cell count and normal kidney labs. Please take the antibiotics as prescribed. Please stay well hydrated. Use naproxen for pain. Follow up with primary care. Please return if worse at any time. Departure Forms: Excuse form Work or School Excused From: Work Excuse beginning now through the following date: Dec 21, 2024 Referrals: NO PRIMARY CARE PROVIDER (PCP) Prescriptions Naproxen (Naproxen) 500 Mg Tablet 1 TAB PO DAILY for 10 Days, #20 TAB Prov: JAMAICA RAVI NP 12/17/24 Phenazopyridine Hcl (Pyridium tablet) 100 Mg Tablet 1 TAB PO Q8H for urinary discomfort for 2 Days, #6 TAB 0 Refills Prov: JAMAICA RAVI NP 12/17/24 Sulfamethoxazole/Trimethoprim (Bactrim Ds Tablet) 800 Mg-160 Mg Tablet 1 TAB PO Q12H for 5 Days, #10 TAB Prov: JAMAICA RAVI NP 12/17/24 Education Educated: Patient Educated regarding: diagnosis, treatment, prognosis, need for follow up Signature Scribe Signature: x Attestation: The note accurately reflects work and decisions made by me.Jamaica Chase NP 12/17/24 10:16 JAMAICA RAVI NP Dec 17, 2024 10:13
[2024-12-17 10:43] LABS: MEAN PLATELET VOLUME 7.9 FL (7.4-10.4); RED CELL DISTRIBUTION WIDTH 13.7 % (11.5-14.5)
[2024-12-17] MEDS: HYDROcodone/acetaminophen 5mg/325mg tablet PO ONE (10:45)
[2024-12-17 11:22] LABS: URINE HCG NEGATIVE (NEG)
[2024-12-17 11:23] LABS: LEUKOCYTE ESTERASE ,URINE TRACE (Neg); NITRITES, URINE POSITIVE (Neg); OCCULT BLOOD,URINE MODERATE (Neg)
[2024-12-17 11:26] LABS: UA COLLECTION TYPE STRAIGHT CATH
[2024-12-17 11:28] LABS: CREATININE 0.70 MG/DL (0.40-0.90); TOTAL CARBON DIOXIDE 25.9 MMOL/L (24-32); eCRCL 90 ML/MIN; eGFR 85 ML/MIN
[2024-12-17 11:29] LABS: SQUAMOUS EPITHELIAL CELL,UR MANY /LPF (FEW)
[2024-12-17] MEDS ORDERED: PHEN-786 PO (12:17)
[2024-12-17] MEDS ORDERED: NAPR-56 PO (12:17)
[2024-12-17] MEDS ORDERED: SULF1TAB49 PO (12:17)
[2024-12-17] MEDS: phenazopyridine 100mg tablet PO ONE (12:22)
[2024-12-17] MEDS: CefTRIAXone 1000mg IM Kit (w/lidocaine diluent) IM ONE (12:23)
[2024-12-17 12:27] VITALS: BP 148/83; PULSE 52; RESP 20; O2SAT 100
[2024-12-20] MEDS ORDERED: CEPH-585 PO (17:30)
== END 2024-12-17 12:43 | disposition home or self-care (01) ==
LOC: ER 09:54
DX: N39.0 Urinary tract infection, site not specified (principal); M54.50 Low back pain, unspecified; E78.5 Hyperlipidemia, unspecified; Z85.3 Personal history of malignant neoplasm of breast; Z90.710 Acquired absence of both cervix and uterus; Z87.440 Personal history of urinary (tract) infections; Z79.899 Other long term (current) drug therapy
CPT/HCPCS: 36415; 80053; 81001; 81025; 83690; 85025; 87077; 87088; 87186; 96372; 99284; J0696